=== PATIENT | female | born 1995 | race Caucasian/White ===

== ENCOUNTER 2019-07-30 15:08 | Emergency (ER) | payer MEDICAID, SELFPAY ==
[2019-07-30] VITALS (10 sets, daily range): BP systolic 102–128; BP diastolic 53–66; PULSE 65–100; RESP 15–31; TEMP 36.7; O2SAT 99–100
--- NOTE | 2019-07-30 15:20 | W.ED.GENAD ---
Discharge Plan Disposition Patient Disposition: HOME Condition: Improving Discharge Details Chief Complaint: Chest Pain Clinical Impression: Intermittent palpitations Primary Care Provider: None,None ED Provider: Tutu Seymour Home Meds and New Rx's Prescriptions: Continued Bcp DAILY RF: 0 Discharge Instructions Instructions: Heart Palpitations (ED) Additional Instructions: We will ask our care management team to set up an outpatient follow-up for you following your Holter monitor and to establish primary care in this area. Continue normal routine and activities. Return to the ER if you have difficulty breathing, chest pain, or any other acute concerns. Home to rest this evening. Return the Holter monitor to respiratory therapy as instructed. Medical Decision Making 24-year-old female presents from home stating she has had intermittent episodes of hard beating in her chest that feels like palpitations and last 10 to 30 minutes. Seems worse after drinking alcohol the night before. Somewhat worse with exertion. She denies recent stress or other illness/injury. She arrives with unremarkable vital signs, she is pleasant and in no acute distress. Differential diagnosis includes stress, anxiety, benign palpitations, must exclude atypical presentation of PE or cardiomegaly. Patient had screening laboratories, EKG obtained. Diagnostics reveal unremarkable CBC, reassuring chemistries with a negative troponin and normal TSH. Her d-dimer is elevated at 939. Patient was subsequent referred for CT scan of the chest to rule out pulmonary embolism. CT scan of the chest was unremarkable. Patient states she subjectively feels improved. Work-up is reassuring. I will place her on a Holter monitor for further monitoring. There is a question of mild GERD and I will trial her on 2 weeks of famotidine. We will arrange outpatient follow-up and establishment of primary care. ECG Data Attestation: I personally reviewed and interpreted this ECG (s) as follows: Interpretation: Normal sinus rhythm, rate of 73, the QRS is narrow, no ST segment elevation present. The QTC is 410. HPI General Mode of arrival: ambulatory. Date/Time Provider Initiated Documentation: 07/30/19 15:09. Limitations to Documentation: no limitations. Information obtained by: patient. History of Present Illness 24 year old F presents to the emergency department with the chief complaint of Intermittent palpitations for 6 weeks, Quality is described as other (Hard beating in her chest), and is localized to the chest. Patient reports no radiation. Patient started experiencing this minute(s) and it has been intermittent and now resolved. No relieving factors improve symptom(s), No exacerbating factors reported . Patient notes other (Feels anxious, throat tightening, sometimes tingling of the fingertips). Patient did receive the following treatments prior to arrival, none Related Data Home Medications Medication Instructions Recorded Confirmed Bcp DAILY 07/30/19 Allergies Allergy/AdvReac Type Severity Reaction Status Date / Time No Known Allergies Allergy Unverified 07/30/19 15:13 General Stated Complaint: Chest Pain ANGEL: 2 Review of Systems Narrative: On control. No lower extremity pain or swelling. No prolonged travel. No known sick contacts. Questions occasional heartburn. 6 systems reviewed and otherwise negative [facility] Social History Smoking/Tobacco Use Status: Never Drug use: Occasionally Substance use type: marijuana Do you feel safe at home: Yes Do you feel safe in your relationship?: Yes Exam Narrative Exam Narrative: GEN: awake, alert, oriented 3. Pleasant, well groomed, interactive. HEAD: Normocephalic, atraumatic ENT: Mucous membranes moist, External ear exam unremarkable EYES: PERRL, EOMI NECK: Full ROM, no SUDHAKAR, no menigismus CHEST/RESP: Nontender, clear to auscultation bilateral, no wheeze/rhonchi/rales CARDIOVASCULAR: RRR, no murmur, rub bob. 2+ Rad pulse bilateral ABDOMEN: Soft, nontender, no mass. +Bowel sounds EXT: Full ROM, no edema, no rash Neuro: Grossly normal neurologic exam, conversant, interactive. Psych: Speech fluent, thoughts congruent, affect normal Course Vital Signs Vital signs: Vital Signs Temperature 36.7 C 07/30/19 15:14 Pulse 75 07/30/19 15:14 Respiratory Rate 07/30/19 15:14 Blood Pressure 124/56 L 07/30/19 15:14 Pulse Oximetry 100 07/30/19 15:14 Temperature 36.7 C 07/30/19 15:14 Temperature Source Temporal Artery Scan 07/30/19 15:14 Pulse 75 07/30/19 15:14 Respiratory Rate 07/30/19 15:14 Respiratory Effort Non-Labored 07/30/19 15:19 Blood Pressure 124/56 L 07/30/19 15:14 Blood Pressure Position Sitting 07/30/19 15:14 Pulse Oximetry 100 07/30/19 15:14 Oxygen Delivery Method Room Air 07/30/19 15:14 Oxygen Flow Rate 0 07/30/19 15:14 Pain Level 4 07/30/19 15:14
[2019-07-30] MEDS: Normal Saline 1,000 ML 1000 ML IV (15:47)
[2019-07-30 15:57] LABS: Abs Immature Grans 0.01 k/cumm (0.0-0.09); Absolute Basophil Count 0.02 k/cumm (0.0-0.2); Absolute Eosinophil Count 0.08 k/cumm (0.0-0.7); Absolute Lymphocyte Count 2.05 k/cumm (1.2-3.4); Absolute Neutrophil Count 3.93 k/cumm (1.2-6.7); Basophils % 0.3; Eosinophils % 1.2; HCT 40.5 % (36.0-46.0); Immature Grans % 0.1 %; Lymphocytes % 30.6; Mean Corp. HGB Concentration 34.6 g/dL (32.0-36.0); Mean Corpuscular Hemoglobin 31.9 pg (27.0-33.0); Mean Corpuscular Volume 92.3 fL (80-95); Mean Platelet Volume 11.2 fL (8.0-11.0); Neutrophils % 58.8; Platelet Count 222 x1000/uL (130-400); RBC 4.39 m/cumm (4.00-5.20); RBC Distribution Width 12.2 % (11.7-14.6); White Blood Cell Count 6.69 k/cumm (4.4-10.8)
[2019-07-30 16:23] LABS: ALT 20 U/L (14-59); AST 22 U/L (15-37); Alkaline Phosphatase 59 U/L (46-116); Anion Gap 9.5 mmol/L (3-11); BUN 13 mg/dL (7-18); Bilirubin, Total 0.4 mg/dL (0.2-1.0); CO2 24.5 mmol/L (21.0-32.0); CREATININE 0.88 mg/dL (0.55-1.02); Calcium 9.3 mg/dL (8.5-10.1); Chloride 104 mmol/L (98-107); Glucose 83 mg/dL (74-106); Sodium 138 mmol/L (136-145); TSH 0.91 uIU/mL (0.36-3.74); Total Protein 7.3 g/dL (6.4-8.2)
[2019-07-30 16:24] LABS: Troponin I < 0.05 ng/mL (<0.06)
[2019-07-30 16:37] LABS: D-Dimer 939 ng/mlFEU (<500)
[2019-07-30] MEDS: Normal Saline - Diluent 50 ML VIAL IV (17:14)
[2019-07-30] MEDS: Omnipaque 350 MG/ML 100 ML BTL IJ (17:15)
--- NOTE | 2019-07-30 17:20 | DI.CT_ITS ---
EXAM: CT CHEST PE CTA CLINICAL HISTORY: Palpitations, chest pressure, elev DDimer. TECHNIQUE: Imaging Protocol: Axial CT angiography was performed with multi-slice acquisition and mu lti-planar and/or 3D reconstructions. CONTRAST MATERIAL: Intravenous: Omnipaque 350 Contrast volume: 70 cc COMPARISON: No exams were available for comparison FINDINGS: Pulmonary Arteries: No evidence of filling defect to suggest pulmonary emboli. Tracheobronchial tree: Patent where visualized. Mediastinum and Aisha: No dominant adenopathy or fluid collection. Pulmonary parenchyma: No consolidation or dominant measurable mass. No architectural distortion. Pleura: No effusion or pneumothorax. Heart: The heart is not dilated. No coronary artery calcifications are seen. Aorta: Thoracic aorta non-dilated. Upper abdomen: Unremarkable. Bones: Normal. Tubes, Catheters, and Lines: None IMPRESSION: No evidence of pulmonary embolism. RADIATION DOSE DELIVERED: 344.84mGy.cm Total DLP DATA REPOSITORY: All CT scans at this facility are submitted to the National Radiology Data Registry (NRDR) Dose Index Registry (DIR) with the [employer] (A[employer]). RADIATION OPTIMIZATION: All CT scans at this facility use at least one of these dose optimization te chniques: automated exposure control; mA and/or kV adjustment per patient size (includes targeted exa ms where dose is matched to clinical indication); or iterative reconstruction.
--- NOTE | 2019-07-30 17:59 | DI.VRAD_ITS ---
PROCEDURE INFORMATION: Exam: CT Angiography Chest With Contrast Exam date and time: 07/30/2019 5:12 PM Age: 24 years old Clinical indication: Other: Chest pressure, elevated d-dimer, palpitations. TECHNIQUE: Imaging protocol: Computed tomographic angiography of the chest with intravenous contrast. 3D rendering: MIP and/or 3D reconstructed images were created by the technologist. Radiation optimization: All CT scans at this facility use at least one of these dose optimization techniques: automated exposure control; mA and/or kV adjustment per patient size (includes targeted exams where dose is matched to clinical indication); or iterative reconstruction. Contrast material: OMNIPAQUE 350; Contrast volume: 65 ml; Contrast route: IV; COMPARISON: No relevant prior studies available. FINDINGS: Pulmonary arteries: Normal. No pulmonary emboli. Aorta: Unremarkable. No aortic aneurysm. No aortic dissection. Lungs: Unremarkable. No consolidation. No masses. Pleural space: Unremarkable. No pneumothorax. No pleural effusion. Heart: Unremarkable. No cardiomegaly. No pericardial effusion. Lymph nodes: Unremarkable. No enlarged lymph nodes. Bones/joints: Unremarkable. No acute fracture. Soft tissues: Unremarkable. IMPRESSION: No acute pulmonary embolus. Dictated and Authenticated by: William Tyson MD. Ordering:DEREK Cam MD
--- NOTE | 2019-07-30 18:16 | NUR.NOTE ---
Nursing Note: Referral given to Care Management to get a PCP and for follow up after holter monitor. Kerri Hayward.
[2019-07-30] MEDS: Famotidine 20 MG TAB PO (18:24)
--- NOTE | 2019-07-31 09:31 | CMPROGNOTE_ITS ---
- If Service Date Differs Date of service: 07/31/19 Time of Service: 09:31 Care Management Progress Note At the request of ED provider, CM coordinates a referral to Mary Jane Mendoza MD, of [facility] for a follow-up appointment to ED visit and to establish care with PCP.
== END 2019-07-30 18:42 | disposition home or self-care (01) ==
PROVIDERS: Emergency Provider Emergency Medicine
DX: R00.2 Palpitations (principal); R79.1 Abnormal coagulation profile
CPT/HCPCS: 36415; 71275; 80053; 81025; 93005; 96361; 99285; 83735; 84443; 84484; 85025; 85379; 93010; 93225; 99284; J3490

== ENCOUNTER 2019-08-04 08:47 | Outpatient (CLI) | payer MEDICAID, SELFPAY ==
--- NOTE | 2019-08-04 09:13 | W.HOLTRPT ---
Date of service: 08/04/19 Time of Service: 09:13 Holter Monitor Report Holter Monitor Note: There is a 48-hour Holter monitor ordered for indication of palpitations. ?Patient was in normal sinus rhythm for the majority of the recording. Mean heart rate was 84 bpm. ?The patient had 0 episodes of supraventricular tachycardia and 7 total premature atrial contractions. ?Patient had 0 episodes of ventricular tachycardia and 0 premature ventricular contractions. ?There were 0 episodes of atrial fibrillation, no pauses greater than 3 seconds and no evidence of high degree heart block. ?The patient diary event of shortness of breath that occurred at 3 AM while sleeping was associated with normal sinus rhythm.
== END 2019-08-04 09:07 ==
PROVIDERS: Visit Provider Emergency Medicine
DX: R00.2 Palpitations (principal); I49.1 Atrial premature depolarization
CPT/HCPCS: 93226

== ENCOUNTER 2020-02-18 15:02 | Outpatient (REF) | payer MEDICAID, SELFPAY | END 2020-02-18 15:22 | LOC: NCHCN 15:02 | PROVIDERS: PCP Nurse Practitioner Family; Visit Provider Nurse Practitioner Family | DX: R30.0 Dysuria (principal) | CPT/HCPCS: 87077; 87086; 87186 ==